=== PATIENT | female | born 1965 | race Caucasian/White ===

== ENCOUNTER 2017-01-04 15:08 | Emergency (ER) | payer BC, OTHER ==
[~2017-01-04] VITALS: Ht 165.1 cm; Wt 78.5 kg
[~2017-01-04 15:08] MED LIST: INSU3INS6 SUBCUT; OLME1TAB PO; TRAM50TA2 PO
--- NOTE | 2017-01-04 15:30 | NUR ---
DR CONCEPCION AT THE BEDSIDE FOR EVAL AND EXAM.
[2017-01-04] MEDS: HYDROCODONE/APAP 5-325MG TABLET PO ONE (15:40)
[2017-01-04] MEDS ORDERED: HYDROCODONE/APAP 5-325MG TABLET ONE (15:47)
[2017-01-04 15:50] LABS: BASOPHILS # (AUTO) 0.1 K/uL (0.0-0.2); BASOPHILS % (AUTO) 0.7 % (0.0-2.0); EOSINOPHILS # (AUTO) 0.3 K/uL (0.0-0.7); EOSINOPHILS % (AUTO) 3.2 % (0.0-7.0); HEMATOCRIT 45.3 % (37.0-47.0); HEMOGLOBIN 15.5 g/dL (12.0-16.0); LYMPHOCYTES # (AUTO) 3.8 K/uL (0.8-4.8); LYMPHOCYTES % (AUTO) 34.8 % (20.5-51.5); MEAN CORPUSCULAR HEMOGLOBIN 30.3 uug (27.0-31.0); MEAN CORPUSCULAR HGB CONC 34 g/dL (32.0-37.0); MEAN CORPUSCULAR VOLUME 88.4 fL (81.0-99.0); MONOCYTES # (AUTO) 0.7 K/uL (0.1-1.30); MONOCYTES % (AUTO) 6.3 % (0.0-11.0); NEUTROPHILS # (AUTO) 5.9 K/uL (1.8-8.9); PLATELET COUNT (AUTO) 249 K/uL (150-450); RED BLOOD CELL COUNT(AUTO) 5.12 MIL/uL (4.20-5.40); RED CELL DISTRIBUTION WIDTH 12.5 % (11.5-14.5); WHITE BLOOD COUNT (AUTO) 10.8 K/uL (4.0-11.2)
[2017-01-04 15:52] LABS: CALCIUM 9.1 mg/dL (8.5-10.1); CREATININE 0.8 mg/dL (0.6-1.3); POTASSIUM 4.6 mmol/L (3.5-5.1)
--- NOTE | 2017-01-04 16:15 | NUR ---
PT BACK FROM CT, RESTING IN BED.
[2017-01-04] MEDS: ONDANSETRON HCL 4 MG TABLET PO ONE (16:24)
[2017-01-04] MEDS ORDERED: ONDANSETRON ODT 4 MG TAB.RAPDIS ONE (16:30)
[2017-01-04 16:37] VITALS: BP 149/81
--- NOTE | 2017-01-04 16:52 | NUR ---
Patient discharged to home in stable conditon. Written and verbal after care instructions given. Patient verbalizes understanding of instructions. PT LEFT ER W/ STEADY GAIT ACCOMPAINED BY FAMILY.
== END 2017-01-04 16:53 | disposition home or self-care (01) ==
LOC: ER 15:12
DX: S01.21XA Laceration without foreign body of nose, initial encounter (principal); E11.9 Type 2 diabetes mellitus without complications; Z79.4 Long term (current) use of insulin; Z88.6 Allergy status to analgesic agent; W01.0XXA Fall on same level from slipping, tripping and stumbling without subsequent striking against object, initial encounter; Y93.89 Activity, other specified; Y99.8 Other external cause status; Y92.89 Other specified places as the place of occurrence of the external cause
CPT/HCPCS: 12013; 36415; 70450; 71010; 80048; 84484; 85025; 85730; 93005; 99285; A4217; A4663; Q0162; 70030-TC

== ENCOUNTER 2017-07-12 16:32 | Emergency (ER) | payer BC, OTHER ==
[~2017-07-12] VITALS: Ht 165.1 cm; Wt 78.9 kg
[~2017-07-12 16:32] MED LIST changes: -OLME1TAB PO; +OLME1TAB16 PO
[2017-07-12] MEDS ORDERED: INSU100V28 (16:54)
--- NOTE | 2017-07-12 17:18 | NUR ---
PATIENT WAS SEEN BY MD FOR C/O FOOT INJURY. XRAYS DONE. POST OP SHOE PLACED. CRUTCHES WITH INSTRUCTIONS GIVEN AND DEMONSTRATED. DC, RX AND FOLLOW UP INSTRUCTIONS GIVEN AND EXPLAINED TO PATIENT WHO STATES SHE UNDERTSTANDS ALL INSTRUCTIONS.
--- NOTE | 2017-07-12 17:46 | NUR ---
WAITING FOR RIDE TO ARRIVE
== END 2017-07-12 18:46 | disposition home or self-care (01) ==
LOC: ER 16:33
DX: S93.602A Unspecified sprain of left foot, initial encounter (principal); I10 Essential (primary) hypertension; E11.9 Type 2 diabetes mellitus without complications; Z79.4 Long term (current) use of insulin; X50.9XXA Other and unspecified overexertion or strenuous movements or postures, initial encounter; Y93.89 Activity, other specified; Y92.9 Unspecified place or not applicable; Y99.9 Unspecified external cause status
CPT/HCPCS: 73630; 96372; 99284; A4663; J1885

== ENCOUNTER 2018-01-15 08:02 | Inpatient (IN) | payer BC, OTHER ==
[~2018-01-15] VITALS: Ht 165.1 cm; Wt 82.6 kg
[2018-01-15] VITALS (8 sets, daily range): BP systolic 118–154; BP diastolic 32–88
[~2018-01-15 08:02] MED LIST changes: +INSU100V28 SQ
[2018-01-15] MEDS ORDERED: ASPIRIN 325 MG TABLET ONE (08:18)
[2018-01-15] MEDS ORDERED: ASPIRIN 325 MG TABLET PO ONE (08:30)
[2018-01-15] MEDS ORDERED: NITROGLYCERIN 0.4 MG/TAB BOTTLE SL ONE ×2 (08:30→08:31)
[2018-01-15] MEDS ORDERED: IV NORMAL SALINE 500 ML BAG IV ONE (08:30)
[2018-01-15 09:11] LABS: BASOPHILS % (AUTO) 0.5 % (0.0-2.0); EOSINOPHILS # (AUTO) 0.2 K/uL (0.0-0.7); EOSINOPHILS % (AUTO) 1.9 % (0.0-7.0); HEMATOCRIT 47.8 % (31.2-41.9); HEMOGLOBIN 16.2 g/dL (10.9-14.3); LYMPHOCYTES # (AUTO) 4.2 K/uL (20.0-40.0); LYMPHOCYTES % (AUTO) 45.7 % (20.5-51.5); MEAN CORPUSCULAR HEMOGLOBIN 30.7 uug (24.7-32.8); MEAN CORPUSCULAR HGB CONC 34 g/dL (32.3-35.6); MEAN CORPUSCULAR VOLUME 90.3 fL (75.5-95.3); MONOCYTES # (AUTO) 0.6 K/uL (2.0-10.0); MONOCYTES % (AUTO) 6.2 % (0.0-11.0); NEUTROPHILS # (AUTO) 4.2 K/uL (1.8-8.9); NEUTROPHILS % (AUTO) 45.7 % (38.5-71.5); PLATELET COUNT (AUTO) 227 K/uL (179-408); RED BLOOD CELL COUNT(AUTO) 5.29 MIL/uL (3.63-4.92); WHITE BLOOD COUNT (AUTO) 9.2 K/uL (3.8-11.8)
[2018-01-15] MEDS ORDERED: ACETAMINOPHEN 325 MG TABLET PO ONE (09:15)
[2018-01-15] MEDS ORDERED: ACETAMINOPHEN ES 500 MG TABLET ONE (09:16)
[2018-01-15 09:17] LABS: CREATININE 0.8 mg/dL (0.6-1.3); POTASSIUM 3.3 mmol/L (3.5-5.1)
[2018-01-15 09:29] LABS: BILIRUBIN,DIRECT 0.1 mg/dL (0.0-0.2); BILIRUBIN,TOTAL 0.4 mg/dL (0.2-1.0); TOTAL PROTEIN, SERUM 8.5 g/dL (6.4-8.2)
[2018-01-15] MEDS ORDERED: INSULIN REGULAR, HUMAN 300 UNIT/3 ML VIAL ONE (09:30)
[2018-01-15] MEDS: INSULIN REGULAR, HUMAN 1,000 UNITS/10 ML VIAL IV ONE (09:32)
[2018-01-15] MEDS ORDERED: ASPI81TA44 PO (09:32)
[2018-01-15] MEDS ORDERED: ONDANSETRON 4 MG/2 ML VIAL IV PRN (12:15)
[2018-01-15] MEDS ORDERED: HYDROCODONE/APAP 5-325MG TABLET PO PRN (12:15)
[2018-01-15] MEDS ORDERED: ZOLPIDEM 5 MG TABLET PO PRN (12:15)
[2018-01-15] MEDS ORDERED: MAGNESIUM HYDROXIDE 30 ML LIQUID UDC PO PRN (12:15)
[2018-01-15] MEDS ORDERED: Z GUARD REMEDY PASTE 57 GM TUBE TOP PRN (12:15)
[2018-01-15] MEDS ORDERED: ACETAMINOPHEN 325 MG TABLET PO PRN (12:15)
[2018-01-15] MEDS ORDERED: DEXTROSE 50% 50 ML DISP.SYRIN IV PRN (13:00)
[2018-01-15] MEDS ORDERED: TRAMADOL HCL 50 MG TABLET PO PRN (13:00)
[2018-01-15] MEDS ORDERED: NITROGLYCERIN 0.4 MG/TAB BOTTLE SL PRN (13:00)
[2018-01-15] MEDS ORDERED: INSULIN REGULAR, HUMAN 300 UNITS/3 ML VIAL SQ PRN (13:00)
[2018-01-15] MEDS ORDERED: LORAZEPAM 0.5 MG TABLET PO PRN (13:15)
[2018-01-15] MEDS ORDERED: MORPHINE SULFATE 4 MG/1 ML DISP.SYRIN IV PRN (13:15)
[2018-01-15] MEDS ORDERED: NORMAL SALINE FLUSH 10 ML DISP.SYRIN ONE (14:53)
[2018-01-15] MEDS ORDERED: IV NORMAL SALINE 100 ML ONE (14:53)
[2018-01-15] MEDS ORDERED: IOHEXOL 350 100 ML INFUS..BTL ONE (14:53)
[2018-01-15] MEDS ORDERED: POTASSIUM CHLORIDE 20 MEQ TAB.PRT.SR PO ONE (15:00)
[2018-01-15] MEDS: PANTOPRAZOLE SODIUM 40 MG VIAL IV SCH (15:06)
[2018-01-15] MEDS: IV NS 1000 ML 1,000 ML IV PRN (15:58)
[2018-01-15] MEDS ORDERED: LISI2.5T2 PO (16:45)
[2018-01-15] MEDS: BLOOD SUGAR DIAGNOSTIC 1 EACH STRIP VI SCH ×2 (17:00→20:42)
[2018-01-15] MEDS: INSULIN REGULAR, HUMAN 300 UNIT/3 ML VIAL SQ PRN ×2 (18:27→20:44)
[2018-01-15] MEDS: INSULIN GLARGINE,HUM 300 UNITS/3 ML CARTRIDGE SQ SCH (20:45)
[2018-01-15] MEDS: METOPROLOL TARTRATE 25 MG TABLET PO SCH (20:56)
[2018-01-15] MEDS: ENOXAPARIN SODIUM 40 MG/0.4 ML DISP.SYRIN SQ SCH (20:58)
[2018-01-16] VITALS: BP 118/58
[2018-01-16 04:00] VITALS: BP 124/64
[2018-01-16] MEDS: BLOOD SUGAR DIAGNOSTIC 1 EACH STRIP VI SCH ×4 (06:30→21:24)
[2018-01-16] MEDS: IV NS 1000 ML 1,000 ML IV PRN ×2 (06:30→23:54)
[2018-01-16 06:38] LABS: BASOPHILS % (AUTO) 0.6 % (0.0-2.0); EOSINOPHILS # (AUTO) 0.2 K/uL (0.0-0.7); EOSINOPHILS % (AUTO) 2.8 % (0.0-7.0); HEMATOCRIT 44.5 % (31.2-41.9); HEMOGLOBIN 14.8 g/dL (10.9-14.3); LYMPHOCYTES # (AUTO) 3.3 K/uL (20.0-40.0); LYMPHOCYTES % (AUTO) 45.3 % (20.5-51.5); MEAN CORPUSCULAR HEMOGLOBIN 30.3 uug (24.7-32.8); MEAN CORPUSCULAR HGB CONC 33 g/dL (32.3-35.6); MEAN CORPUSCULAR VOLUME 91.1 fL (75.5-95.3); MONOCYTES # (AUTO) 0.5 K/uL (2.0-10.0); MONOCYTES % (AUTO) 6.9 % (0.0-11.0); NEUTROPHILS # (AUTO) 3.2 K/uL (1.8-8.9); NEUTROPHILS % (AUTO) 44.4 % (38.5-71.5); PLATELET COUNT (AUTO) 182 K/uL (179-408); RED BLOOD CELL COUNT(AUTO) 4.88 MIL/uL (3.63-4.92); WHITE BLOOD COUNT (AUTO) 7.3 K/uL (3.8-11.8)
[2018-01-16 06:49] LABS: CREATININE 0.7 mg/dL (0.6-1.3); PHOSPHOROUS 3.3 mg/dL (2.5-4.9); POTASSIUM 4.6 mmol/L (3.5-5.1)
[2018-01-16 07:10] LABS: THYROID STIMULATING HORMONE 0.744 mIU/mL (0.358-3.740)
[2018-01-16 08:35] LABS: *BILIRUBIN,URIN NEGATIVE (NEGATIVE); *BLOOD, URINE NEGATIVE (NEGATIVE); *CLARITY,URINE CLEAR (CLEAR); *COLOR,URINE YELLOW (YELLOW); *KETONES,URINE NEGATIVE (NEGATIVE); *PROTEIN,URINE NEGATIVE (NEGATIVE); *UROBILINOGEN,URINE 0.2 E.U./dl (NORMAL); LEUKOCYTE ESTERASE ,URINE NEGATIVE (NEGATIVE); NITRITE, URINE NEGATIVE (NEGATIVE); UGLUCOSE TRACE (NEGATIVE)
[2018-01-16 08:41] LABS: BACTERIA,URINE FEW /HPF (NONE SEEN); RBC,URINE 0-3 /HPF (0-3); SQUAMOUS EPITHELIAL CELL,UR MODERATE /HPF (NONE SEEN)
[2018-01-16] MEDS ORDERED: ASPIRIN EC 81 MG TABLET.DR PO SCH (09:00)
[2018-01-16] MEDS ORDERED: ASPIRIN 81 MG TAB.CHEW GT SCH (09:00)
[2018-01-16] MEDS: INSULIN GLARGINE,HUM 300 UNITS/3 ML CARTRIDGE SQ SCH ×2 (09:00→21:17)
[2018-01-16] MEDS ORDERED: ASPIRIN 81 MG TAB.CHEW PO SCH (09:00)
[2018-01-16] MEDS: LISINOPRIL 10 MG TABLET PO SCH (09:00)
[2018-01-16] MEDS: METOPROLOL TARTRATE 25 MG TABLET PO SCH ×2 (09:00→21:07)
[2018-01-16] MEDS: PANTOPRAZOLE SODIUM 40 MG VIAL IV SCH (09:40)
[2018-01-16 11:15] VITALS: BP 115/45
[2018-01-16] MEDS ORDERED: REGADENOSON 0.4 MG/5 ML PREFILLED SYR IV ONE (16:25)
[2018-01-16] MEDS: INSULIN REGULAR, HUMAN 300 UNIT/3 ML VIAL SQ PRN (16:48)
[2018-01-16 20:01] VITALS: BP 115/57
[2018-01-16] MEDS ORDERED: ATORVASTATIN 20 MG TABLET PO SCH (21:00)
[2018-01-16] MEDS ORDERED: ATORVASTATIN 40 MG TABLET PO SCH (21:00)
[2018-01-16] MEDS: ENOXAPARIN SODIUM 40 MG/0.4 ML DISP.SYRIN SQ SCH (21:24)
[2018-01-17 05:47] VITALS: BP 131/69
[2018-01-17] MEDS: BLOOD SUGAR DIAGNOSTIC 1 EACH STRIP VI SCH ×3 (06:02→16:06)
[2018-01-17] MEDS: INSULIN REGULAR, HUMAN 300 UNIT/3 ML VIAL SQ PRN ×3 (07:47→16:07)
[2018-01-17] MEDS: PANTOPRAZOLE SODIUM 40 MG VIAL IV SCH (08:14)
[2018-01-17] MEDS: LISINOPRIL 10 MG TABLET PO SCH (08:15)
[2018-01-17] MEDS ORDERED: ASPIRIN 81 MG TAB.CHEW PO SCH (09:00)
[2018-01-17] MEDS: INSULIN GLARGINE,HUM 300 UNITS/3 ML CARTRIDGE SQ SCH (09:13)
[2018-01-17 11:49] VITALS: BP 141/58
[2018-01-17] MEDS ORDERED: ATOR10TA PO (15:41)
[2018-01-17] MEDS ORDERED: LISI10TA5 PO (15:41)
[2018-01-17 15:49] VITALS: BP 113/68
[2018-01-18] MEDS ORDERED: PANTOPRAZOLE SODIUM 40 MG TABLET.DR PO SCH (07:00)
== END 2018-01-17 16:40 | disposition home or self-care (01) | DRG 206 ==
LOC: ER 08:02 → TELE 10:48 → CCUOV 11:14 → CCU 11:16 → TELE 19:11 → MED 01-16 22:00
PROVIDERS: ADMIT Hospitalist; ATTEND Hospitalist
DX: M94.0 Chondrocostal junction syndrome [Tietze] (principal); E11.42 Type 2 diabetes mellitus with diabetic polyneuropathy; K76.0 Fatty (change of) liver, not elsewhere classified; G43.109 Migraine with aura, not intractable, without status migrainosus; E11.65 Type 2 diabetes mellitus with hyperglycemia; Z86.19 Personal history of other infectious and parasitic diseases; E66.9 Obesity, unspecified; Z68.30 Body mass index [BMI] 30.0-30.9, adult; E87.6 Hypokalemia; J32.8 Other chronic sinusitis; Z82.49 Family history of ischemic heart disease and other diseases of the circulatory system; Z82.3 Family history of stroke; Z83.3 Family history of diabetes mellitus; Z91.14 Patient's other noncompliance with medication regimen; Z90.710 Acquired absence of both cervix and uterus; Z90.49 Acquired absence of other specified parts of digestive tract; Z79.4 Long term (current) use of insulin; J34.2 Deviated nasal septum; I10 Essential (primary) hypertension; Z86.73 Personal history of transient ischemic attack (TIA), and cerebral infarction without residual deficits
CPT/HCPCS: 36415; 70030-TC; 70450; 70551; 71045; 71275; 78452; 83735; 84100; 84443; 85025; 85730; 87086; 93005; 93307; A4663; A9150; A9502; C9113; J1650; J1815; J2405; J2785; J3490; J7030; J7050; Q9967

== ENCOUNTER 2018-04-06 22:47 | Emergency (ER) | payer BC, OTHER ==
[~2018-04-06] VITALS: Ht 165.1 cm; Wt 78.5 kg
[~2018-04-06 22:47] MED LIST changes: +ASPI81TA44 PO; +ATOR10TA PO; -INSU100V28 SQ; +LISI10TA5 PO; -OLME1TAB16 PO; -TRAM50TA2 PO
[2018-04-06] MEDS ORDERED: BENZONATATE 100 MG CAPSULE PO ONE (23:30)
[2018-04-06] MEDS ORDERED: ALBUTEROL SULFATE 2.5 MG/3 ML NEBU NEB ONE (23:30)
[2018-04-06] MEDS ORDERED: ALBUTEROL SULFATE 2.5 MG/3 ML NEBU ONE (23:34)
[2018-04-06] MEDS ORDERED: BENZONATATE 100 MG CAPSULE ONE (23:36)
--- NOTE | 2018-04-06 23:50 | NUR ---
Patient in bed, no acute distress noted. Breathing tx well tolerated.
--- NOTE | 2018-04-07 00:22 | NUR ---
Patient discharged to home in stable conditon. Written and verbal after care instructions given. Patient verbalizes understanding of instructions. Ambulated from ER with stable chris. All belongings with patient.
[2018-04-07 00:32] VITALS: BP 141/81
== END 2018-04-07 00:33 | disposition home or self-care (01) ==
LOC: ER 22:48
DX: J20.8 Acute bronchitis due to other specified organisms (principal); B97.89 Other viral agents as the cause of diseases classified elsewhere; I10 Essential (primary) hypertension; E11.9 Type 2 diabetes mellitus without complications; Z88.5 Allergy status to narcotic agent; Z91.041 Radiographic dye allergy status; Z90.710 Acquired absence of both cervix and uterus; Z90.49 Acquired absence of other specified parts of digestive tract; Z79.82 Long term (current) use of aspirin; Z79.4 Long term (current) use of insulin; Z79.899 Other long term (current) drug therapy
CPT/HCPCS: 71045; 94640; 99283; A4663

== ENCOUNTER 2018-12-09 09:04 | Emergency (ER) | payer BC, OTHER ==
[~2018-12-09] VITALS: Ht 172.7 cm; Wt 80.7 kg
--- NOTE | 2018-12-09 10:17 | NUR ---
Patient discharged to home in stable conditon & brisk steady gait. Written and verbal after care instructions given to patient. Patient verbalizes understanding of instructions.
== END 2018-12-09 10:30 | disposition home or self-care (01) ==
LOC: ER 09:04
DX: J11.1 Influenza due to unidentified influenza virus with other respiratory manifestations (principal); I10 Essential (primary) hypertension; E11.9 Type 2 diabetes mellitus without complications; Z88.5 Allergy status to narcotic agent; Z91.041 Radiographic dye allergy status; Z79.82 Long term (current) use of aspirin; Z79.4 Long term (current) use of insulin; Z79.899 Other long term (current) drug therapy
CPT/HCPCS: 71045; A4663

== ENCOUNTER 2019-04-02 13:46 | Emergency (ER) | payer BC, OTHER ==
[~2019-04-02] VITALS: Ht 165.1 cm; Wt 74.8 kg
[2019-04-02] MEDS ORDERED: IV NORMAL SALINE 1000 ML BAG IV ONE ×2 (14:15)
[2019-04-02] MEDS ORDERED: ONDANSETRON 4 MG/2 ML VIAL IV ONE (14:15)
[2019-04-02] MEDS ORDERED: KETOROLAC TROMETHAMINE 30 MG INJ IVP ONE (14:15)
--- NOTE | 2019-04-02 14:20 | NUR ---
in room 2a, seen by Dr Harrison. orders received. 12 lead ekg done. Attempted IV start via right arm and left arm. IV inserted via left wrist #22. blood drawn for labs. to Radiology for head CT Addendum: 04/02/[address] of pelvis/abdomen done instead of head ct
[2019-04-02] MEDS ORDERED: ONDANSETRON 4 MG/2 ML VIAL ONE (14:24)
[2019-04-02] MEDS ORDERED: KETOROLAC TROMETHAMINE 30 MG INJ ONE (14:25)
[2019-04-02 14:28] LABS: BASOPHILS % (AUTO) 0.4 % (0.0-2.0); EOSINOPHILS # (AUTO) 0.1 K/uL (0.0-0.7); HEMATOCRIT 48.1 % (31.2-41.9); HEMOGLOBIN 15.5 g/dL (10.9-14.3); LYMPHOCYTES # (AUTO) 3.3 K/uL (20.0-40.0); LYMPHOCYTES % (AUTO) 39.6 % (20.5-51.5); MEAN CORPUSCULAR HEMOGLOBIN 29.2 uug (24.7-32.8); MEAN CORPUSCULAR HGB CONC 32 g/dL (32.3-35.6); MEAN CORPUSCULAR VOLUME 90.5 fL (75.5-95.3); MONOCYTES # (AUTO) 0.5 K/uL (2.0-10.0); MONOCYTES % (AUTO) 5.5 % (0.0-11.0); NEUTROPHILS # (AUTO) 4.5 K/uL (1.8-8.9); NEUTROPHILS % (AUTO) 53.5 % (38.5-71.5); PLATELET COUNT (AUTO) 202 K/uL (179-408); RED BLOOD CELL COUNT(AUTO) 5.31 MIL/uL (3.63-4.92); WHITE BLOOD COUNT (AUTO) 8.4 K/uL (3.8-11.8)
[2019-04-02 14:34] LABS: CREATININE 0.7 mg/dL (0.6-1.3); POTASSIUM 4.7 mmol/L (3.5-5.1)
[2019-04-02 14:45] LABS: BILIRUBIN,DIRECT 0.1 mg/dL (0.0-0.2); BILIRUBIN,TOTAL 0.4 mg/dL (0.2-1.0); TOTAL PROTEIN, SERUM 8.1 g/dL (6.4-8.2)
[2019-04-02] MEDS ORDERED: LOSA50TA39 PO (14:47)
--- NOTE | 2019-04-02 14:58 | NUR ---
back from Radiology. IV NS 1 liter started wide open. medicated with zofran followed with toradol IV
[2019-04-02 17:04] VITALS: BP 138/60
== END 2019-04-02 17:08 | disposition home or self-care (01) ==
LOC: ER 13:46 → MERGE 13:46 → ER 17:08
DX: R10.31 Right lower quadrant pain (principal); E11.65 Type 2 diabetes mellitus with hyperglycemia; R11.2 Nausea with vomiting, unspecified; I10 Essential (primary) hypertension; Z90.49 Acquired absence of other specified parts of digestive tract; Z88.5 Allergy status to narcotic agent; Z88.8 Allergy status to other drugs, medicaments and biological substances; Z91.041 Radiographic dye allergy status; Z79.82 Long term (current) use of aspirin; Z79.4 Long term (current) use of insulin; Z79.899 Other long term (current) drug therapy
CPT/HCPCS: 36415; 71045; 74176; 80048; 80076; 83036; 83690; 84484; 85025; 85730; 93005; 96361; 96374; 96375; 99284; J1885; J2405; 70030-TC; A4663; J7030

== ENCOUNTER 2019-11-20 09:58 | Inpatient (IN) | payer BC, OTHER ==
[~2019-11-20] VITALS: Ht 165.1 cm; Wt 80.0 kg
[~2019-11-20 09:58] MED LIST changes: +LOSA50TA39 PO
[2019-11-20] MEDS ORDERED: INSU3INS6 SQ (10:30)
[2019-11-20] MEDS ORDERED: INSU100V28 SQ (10:30)
[2019-11-20 10:56] LABS: BASOPHILS # (AUTO) 0.1 K/uL (0.0-8.0); BASOPHILS % (AUTO) 0.7 % (0.0-2.0); EOSINOPHILS # (AUTO) 0.2 K/uL (0.0-0.7); EOSINOPHILS % (AUTO) 2.8 % (0.0-7.0); HEMATOCRIT 44.2 % (31.2-41.9); HEMOGLOBIN 14.9 g/dL (10.9-14.3); LYMPHOCYTES # (AUTO) 3.1 K/uL (20.0-40.0); LYMPHOCYTES % (AUTO) 34.7 % (20.5-51.5); MEAN CORPUSCULAR HEMOGLOBIN 30.6 uug (24.7-32.8); MEAN CORPUSCULAR HGB CONC 34 g/dL (32.3-35.6); MONOCYTES # (AUTO) 0.5 K/uL (2.0-10.0); MONOCYTES % (AUTO) 5.4 % (0.0-11.0); NEUTROPHILS % (AUTO) 56.4 % (38.5-71.5); PLATELET COUNT (AUTO) 249 K/uL (179-408); RED BLOOD CELL COUNT(AUTO) 4.86 MIL/uL (3.63-4.92); WHITE BLOOD COUNT (AUTO) 8.8 K/uL (3.8-11.8)
[2019-11-20 11:05] LABS: BILIRUBIN,DIRECT 0.1 mg/dL (0.0-0.2); BILIRUBIN,TOTAL 0.3 mg/dL (0.2-1.0); CREATININE 0.8 mg/dL (0.6-1.3); POTASSIUM 3.8 mmol/L (3.5-5.1); TOTAL PROTEIN, SERUM 7.4 g/dL (6.4-8.2)
[2019-11-20 11:44] LABS: MAGNESIUM 1.8 mg/dL (1.8-2.4); THYROID STIMULATING HORMONE 0.604 mIU/mL (0.358-3.740)
[2019-11-20] MEDS ORDERED: ACETAMINOPHEN ES 500 MG TABLET PO ONE (11:45)
[2019-11-20] MEDS ORDERED: ASPIRIN 325 MG TABLET PO ONE (11:45)
--- NOTE | 2019-11-20 11:48 | NUR ---
Pt resting with NAD noted. [facility] called for admission per request.
[2019-11-20] MEDS ORDERED: ACETAMINOPHEN ES 500 MG TABLET ONE (11:51)
[2019-11-20] MEDS ORDERED: ASPIRIN 325 MG TABLET ONE (11:51)
--- NOTE | 2019-11-20 12:30 | NUR ---
spoke with via telephone, pt to be admitted to tele. Attempted to give report to tele floor, assigned nurse to call back.
[2019-11-20] MEDS ORDERED: CYCL5TAB PO (13:12)
[2019-11-20] MEDS ORDERED: CHOL500062 PO (13:12)
[2019-11-20] MEDS ORDERED: CYAN-10 IM (13:12)
[2019-11-20] MEDS ORDERED: HYDROCODONE/APAP 5-325MG TABLET PO PRN (13:30)
[2019-11-20] MEDS ORDERED: MAGNESIUM HYDROXIDE 30 ML LIQUID UDC PO PRN (13:30)
[2019-11-20] MEDS ORDERED: Z GUARD REMEDY PASTE 57 GM TUBE TOP PRN (13:30)
[2019-11-20] MEDS ORDERED: ONDANSETRON 4 MG/2 ML VIAL IV PRN (13:30)
--- NOTE | 2019-11-20 13:35 | NUR ---
[facility] report given to [facility] via telephone.
--- NOTE | 2019-11-20 13:50 | NUR ---
PT TRANS TO TELE, NAD NOTED.
[2019-11-20 14:30] VITALS: BP 151/82
--- NOTE | 2019-11-20 16:02 | NUR ---
alert, oriented, and very appropriate. " here because my sugar so high, I was scared". Works at [employer], no complaint of dizziness , no weakness at this time. Sons at bedside with her. Made aware her sugar will be checked again at 1800 today, and we'll go from there.
[2019-11-20 16:49] VITALS: BP 145/85
[2019-11-20] MEDS: INSULIN REGULAR, HUMAN 300 UNIT/3 ML VIAL SQ SCH (17:07)
--- NOTE | 2019-11-20 17:19 | NUR ---
bs at 1700, down to 173, 10units reg insulin given. No further complaint.
[2019-11-20 20:39] VITALS: BP 118/64
[2019-11-20] MEDS: INSULIN GLARGINE,HUM 300 UNITS/3 ML CARTRIDGE SQ SCH (21:12)
[2019-11-20] MEDS: ACETAMINOPHEN 325 MG TABLET PO PRN (21:54)
[2019-11-21] VITALS: BP 115/62
[2019-11-21 05:52] VITALS: BP 122/65
[2019-11-21] MEDS: ACETAMINOPHEN 325 MG TABLET PO PRN ×2 (06:14→20:48)
[2019-11-21 06:21] LABS: BASOPHILS % (AUTO) 0.5 % (0.0-2.0); EOSINOPHILS # (AUTO) 0.2 K/uL (0.0-0.7); EOSINOPHILS % (AUTO) 3.9 % (0.0-7.0); HEMATOCRIT 43.8 % (31.2-41.9); HEMOGLOBIN 14.8 g/dL (10.9-14.3); LYMPHOCYTES # (AUTO) 2.2 K/uL (20.0-40.0); LYMPHOCYTES % (AUTO) 35.3 % (20.5-51.5); MEAN CORPUSCULAR HEMOGLOBIN 30.8 uug (24.7-32.8); MEAN CORPUSCULAR HGB CONC 34 g/dL (32.3-35.6); MEAN CORPUSCULAR VOLUME 91.3 fL (75.5-95.3); MONOCYTES # (AUTO) 0.5 K/uL (2.0-10.0); MONOCYTES % (AUTO) 7.5 % (0.0-11.0); NEUTROPHILS # (AUTO) 3.4 K/uL (1.8-8.9); NEUTROPHILS % (AUTO) 52.8 % (38.5-71.5); PLATELET COUNT (AUTO) 246 K/uL (179-408); WHITE BLOOD COUNT (AUTO) 6.4 K/uL (3.8-11.8)
[2019-11-21 06:35] LABS: CREATININE 0.7 mg/dL (0.6-1.3); MAGNESIUM 1.8 mg/dL (1.8-2.4); PHOSPHOROUS 3.5 mg/dL (2.5-4.9); POTASSIUM 4.3 mmol/L (3.5-5.1)
--- NOTE | 2019-11-21 06:42 | NUR ---
patient received in bed with daughter at bedside. no signs of acute distress and v/s stable throughout shift. safety and comfort measures provided. Tylenol administered for pain in the neck. denies chest pain throughout shift. NSR on tele monitor. will continue plan of care and endorse accordingly.
--- NOTE | 2019-11-21 08:00 | NUR ---
received pt. resting in bed alert oriented x4. Pt. denies pain discomfort. Pt. denies SOB/ difficulty breathing. Safety measures in place. Call light within reach. Will continue to monitor pt.
[2019-11-21] MEDS: CHOLECALCIFEROL 1,000 UNIT TABLET PO SCH (08:45)
[2019-11-21] MEDS: CYCLOBENZAPRINE HCL 10 MG TABLET PO SCH (08:45)
[2019-11-21] MEDS: ASPIRIN EC 81 MG TABLET.DR PO SCH (08:45)
[2019-11-21] MEDS: LOSARTAN POTASSIUM 50 MG TABLET PO SCH (08:45)
[2019-11-21] MEDS: INSULIN REGULAR, HUMAN 300 UNIT/3 ML VIAL SQ SCH ×3 (08:47→17:52)
[2019-11-21] MEDS: INSULIN GLARGINE,HUM 300 UNITS/3 ML CARTRIDGE SQ SCH ×2 (08:49→20:43)
[2019-11-21] MEDS ORDERED: DEXTROSE 50% 50 ML DISP.SYRIN IV PRN (10:45)
[2019-11-21 11:51] VITALS: BP 109/73
--- NOTE | 2019-11-21 12:52 | NUR ---
Spoke to hospitalist Dr. Hermosillo and pharmacist Petty regarding regular insulin scheduled 10 units before meals and for mild sliding scale. Instructed by pharmacist to check blood sugar before meals and give 10 units of insulin scheduled then to recheck blood sugar after meals and to call pharmacist before providing sliding scale insulin.
--- NOTE | 2019-11-21 14:49 | NUR ---
blood sugar is elevated on 3 different blood sugar checks. 1st check 358 2nd check 286 and third check 305. Ordered random glucose to get accurate check of blood sugar. Waiting for lab results.
[2019-11-21] MEDS: BLOOD SUGAR DIAGNOSTIC 1 EACH STRIP VI SCH ×4 (14:56→20:41)
[2019-11-21] MEDS: INSULIN REGULAR, HUMAN 300 UNIT/3 ML VIAL SQ PRN ×2 (15:08→18:23)
[2019-11-21 20:27] VITALS: BP 121/62
[2019-11-22 06:01] VITALS: BP 115/73
--- NOTE | 2019-11-22 06:21 | NUR ---
Patient slept well. No complaints of chest pain. Heplock on LFA intact and patent w/ saline flush. Patient had shower this AM. All needs attended. Will endorse accordingly
[2019-11-22] MEDS: BLOOD SUGAR DIAGNOSTIC 1 EACH STRIP VI SCH ×2 (06:31→13:46)
[2019-11-22 06:39] LABS: BASOPHILS # (AUTO) 0.1 K/uL (0.0-8.0); BASOPHILS % (AUTO) 0.7 % (0.0-2.0); EOSINOPHILS # (AUTO) 0.2 K/uL (0.0-0.7); EOSINOPHILS % (AUTO) 2.4 % (0.0-7.0); HEMATOCRIT 45.5 % (31.2-41.9); HEMOGLOBIN 15.2 g/dL (10.9-14.3); LYMPHOCYTES # (AUTO) 2.9 K/uL (20.0-40.0); LYMPHOCYTES % (AUTO) 35.6 % (20.5-51.5); MEAN CORPUSCULAR HEMOGLOBIN 30.5 uug (24.7-32.8); MEAN CORPUSCULAR HGB CONC 33 g/dL (32.3-35.6); MEAN CORPUSCULAR VOLUME 91.3 fL (75.5-95.3); MONOCYTES # (AUTO) 0.7 K/uL (2.0-10.0); MONOCYTES % (AUTO) 8.6 % (0.0-11.0); NEUTROPHILS # (AUTO) 4.3 K/uL (1.8-8.9); NEUTROPHILS % (AUTO) 52.7 % (38.5-71.5); PLATELET COUNT (AUTO) 254 K/uL (179-408); RED BLOOD CELL COUNT(AUTO) 4.98 MIL/uL (3.63-4.92); WHITE BLOOD COUNT (AUTO) 8.1 K/uL (3.8-11.8)
[2019-11-22 06:42] LABS: CREATININE 0.7 mg/dL (0.6-1.3); POTASSIUM 3.9 mmol/L (3.5-5.1)
--- NOTE | 2019-11-22 08:15 | NUR ---
Received pt. resting in bed alert oriented x4. Pt. denies pain discomfort. Pt. denies SOB/ difficulty breathing. Pt. has IV in L forearm 20 gauge intact patent saline lock. Safety measures in place. Call light within reach. Will continue to monitor pt.
[2019-11-22] MEDS: LOSARTAN POTASSIUM 50 MG TABLET PO SCH (08:58)
[2019-11-22] MEDS: CHOLECALCIFEROL 1,000 UNIT TABLET PO SCH (08:58)
[2019-11-22] MEDS: ASPIRIN EC 81 MG TABLET.DR PO SCH (08:58)
[2019-11-22] MEDS: CYCLOBENZAPRINE HCL 10 MG TABLET PO SCH (08:59)
[2019-11-22] MEDS: INSULIN GLARGINE,HUM 300 UNITS/3 ML CARTRIDGE SQ SCH (09:08)
[2019-11-22] MEDS: INSULIN REGULAR, HUMAN 300 UNIT/3 ML VIAL SQ SCH ×2 (09:09→13:29)
[2019-11-22] MEDS ORDERED: INSU100V28 SQ (10:18)
[2019-11-22] MEDS ORDERED: Insulin Glargine,Hum SQ (10:18)
[2019-11-22 12:00] VITALS: BP 131/76
[2019-11-22] MEDS: INSULIN REGULAR, HUMAN 300 UNIT/3 ML VIAL SQ PRN (13:43)
--- NOTE | 2019-11-22 14:37 | NUR ---
Pt. discharged home with self care. All discharge paperwork explained by nurse and signed by pt. Pt is aware of discharge plans. IV removed. id band removed. All belongings back to pt. Excused from work until 11/[address] Hermosillo. Consent to release information signed by pt. and in chart. Pt. walked down by nurse and left via private car. 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 pt. in stable condition
[2019-11-26] MEDS ORDERED: CYANOCOBALAMIN 1000 MCG/ML VIAL IM SCH (09:00)
== END 2019-11-22 14:30 | disposition home or self-care (01) | DRG 638 ==
LOC: ER 09:59 → TELE3 13:37 → MEDSURG3 11-21 18:15
PROVIDERS: ADMIT Family Medicine; ATTEND Family Medicine
DX: E11.65 Type 2 diabetes mellitus with hyperglycemia (principal); E44.0 Moderate protein-calorie malnutrition; R07.89 Other chest pain; E66.9 Obesity, unspecified; D63.8 Anemia in other chronic diseases classified elsewhere; I10 Essential (primary) hypertension; Z90.49 Acquired absence of other specified parts of digestive tract; Z79.4 Long term (current) use of insulin; Z68.27 Body mass index [BMI] 27.0-27.9, adult; Z79.82 Long term (current) use of aspirin; E78.5 Hyperlipidemia, unspecified; J45.909 Unspecified asthma, uncomplicated
CPT/HCPCS: 36415; 70030-TC; 70450; 71046; 83525; 83690; 83735; 84100; 84443; 85025; 93005; A4663; A9150; G0378; J1815

== ENCOUNTER 2020-08-10 22:12 | Emergency (ER) | payer BC, OTHER ==
[~2020-08-10] VITALS: Ht 165.1 cm; Wt 71.7 kg
[~2020-08-10 22:12] MED LIST changes: -ATOR10TA PO; +CHOL500062 PO; +CYAN-10 IM; +CYCL5TAB PO; +INSU100V28 SQ; -INSU3INS6 SUBCUT; +Insulin Glargine,Hum SQ; -LISI10TA5 PO
--- NOTE | 2020-08-10 22:26 | NUR ---
Dr. Rollins at bedside for MSE.
[2020-08-10 22:50] LABS: BASOPHILS % (AUTO) 0.6 % (0.0-2.0); EOSINOPHILS # (AUTO) 0.2 K/uL (0.0-0.7); EOSINOPHILS % (AUTO) 3.4 % (0.0-7.0); HEMATOCRIT 42.5 % (31.2-41.9); HEMOGLOBIN 14.4 g/dL (10.9-14.3); LYMPHOCYTES # (AUTO) 3.2 K/uL (20.0-40.0); LYMPHOCYTES % (AUTO) 45.2 % (20.5-51.5); MEAN CORPUSCULAR HGB CONC 34 g/dL (32.3-35.6); MEAN CORPUSCULAR VOLUME 91.2 fL (75.5-95.3); MONOCYTES # (AUTO) 0.5 K/uL (2.0-10.0); MONOCYTES % (AUTO) 6.5 % (0.0-11.0); NEUTROPHILS # (AUTO) 3.1 K/uL (1.8-8.9); NEUTROPHILS % (AUTO) 44.3 % (38.5-71.5); PLATELET COUNT (AUTO) 226 K/uL (179-408); RED BLOOD CELL COUNT(AUTO) 4.66 MIL/uL (3.63-4.92)
[2020-08-10 22:51] LABS: CREATININE 0.9 mg/dL (0.6-1.3)
[2020-08-10 22:56] LABS: BILIRUBIN,DIRECT 0.1 mg/dL (0.0-0.2); BILIRUBIN,TOTAL 0.2 mg/dL (0.2-1.0); TOTAL PROTEIN, SERUM 7.4 g/dL (6.4-8.2)
--- NOTE | 2020-08-10 23:16 | NUR ---
Pt provided urine sample, sent to lab.
[2020-08-10 23:25] LABS: *BILIRUBIN,URIN NEGATIVE (NEGATIVE); *BLOOD, URINE NEGATIVE (NEGATIVE); *CLARITY,URINE SLIGHTLY CLOUDY (CLEAR); *COLOR,URINE LIGHT YELLOW (YELLOW); *KETONES,URINE NEGATIVE (NEGATIVE); *UROBILINOGEN,URINE 0.2 E.U./dl (NORMAL); LEUKOCYTE ESTERASE ,URINE NEGATIVE (NEGATIVE); NITRITE, URINE NEGATIVE (NEGATIVE); PH,URINE 7.5 (5.0-8.0); UGLUCOSE 3+ (NEGATIVE)
[2020-08-10 23:44] LABS: BACTERIA,URINE NONE SEEN /HPF (NONE SEEN); RBC,URINE 0-3 /HPF (0-3); URINE AMORPHOUS PHOSPHATES MODERATE /HPF; WBC,URINE 0-3 /HPF (0-3)
[2020-08-11] MEDS ORDERED: ACETAMINOPHEN 325 MG TABLET ONE (00:44)
[2020-08-11] MEDS ORDERED: ACETAMINOPHEN 325 MG TABLET PO ONE (00:45)
--- NOTE | 2020-08-11 00:50 | NUR ---
R shoulder sling applied to patient, tolerated well. Teaching provided. Verbalized understanding. Pt not in distress.
--- NOTE | 2020-08-11 01:58 | NUR ---
Patient cleared for discharge to home. Stressed follow up or return to ER for worsening s/s. Written and verbal after care instructions given. Patient verbalizes understanding of instructions. Work note also provided to patient and faxed to patient's employer per her request. Ambulated out of ER in steady gait and stable condition.
[2020-08-11 02:01] VITALS: BP 141/91
== END 2020-08-11 02:05 | disposition home or self-care (01) ==
LOC: ER 22:14
DX: S42.91XA Fracture of right shoulder girdle, part unspecified, initial encounter for closed fracture (principal); W18.30XA Fall on same level, unspecified, initial encounter; Y92.89 Other specified places as the place of occurrence of the external cause; R55 Syncope and collapse; R51.9 Headache, unspecified; E11.9 Type 2 diabetes mellitus without complications; I10 Essential (primary) hypertension; R10.9 Unspecified abdominal pain; Z90.49 Acquired absence of other specified parts of digestive tract; Z88.5 Allergy status to narcotic agent; Z91.041 Radiographic dye allergy status; Z79.4 Long term (current) use of insulin; J32.0 Chronic maxillary sinusitis; Z79.82 Long term (current) use of aspirin; R94.31 Abnormal electrocardiogram [ECG] [EKG]
CPT/HCPCS: 36415; 70030-TC; 70450; 71045; 73030; 85025; 93005; A4663

== ENCOUNTER 2021-02-02 07:54 | Emergency (ER) | payer BC, OTHER ==
[~2021-02-02] VITALS: Ht 165.1 cm; Wt 77.1 kg
--- NOTE | 2021-02-02 08:00 | NUR ---
Dr Leal at bedside for MSE.
[2021-02-02] MEDS ORDERED: AMOX-430 PO (08:08)
[2021-02-02] MEDS ORDERED: ERYT3.5O24 LEFTEYE (08:08)
--- NOTE | 2021-02-02 08:15 | NUR ---
Pt has been cleared for DC by DON. Written and verbal after care instructions given. Patient verbalizes understanding of instructions. Stressed follow up or return to ER for worsening s/s. Patient discharged to home in stable condition, ambulated out of ED steady gait.
[2021-02-02 08:17] VITALS: BP 150/75
== END 2021-02-02 08:17 | disposition home or self-care (01) ==
LOC: ER 07:56 → MERGE 07:56 → ER 08:17
DX: L03.213 Periorbital cellulitis (principal); R03.0 Elevated blood-pressure reading, without diagnosis of hypertension; Z88.5 Allergy status to narcotic agent; Z91.041 Radiographic dye allergy status
CPT/HCPCS: A4663

== ENCOUNTER 2021-10-16 00:01 | Emergency (ER) | payer BC, OTHER ==
[~2021-10-16] VITALS: Ht 165.1 cm; Wt 77.1 kg
[~2021-10-16 00:01] MED LIST changes: +AMOX-430 PO; +ERYT3.5O24 LEFTEYE
--- NOTE | 2021-10-16 00:41 | NUR ---
DR. RHODES AT BEDSIDE, MSE IN PROGRESS.
--- NOTE | 2021-10-16 00:50 | NUR ---
XRAY AT BEDSIDE.
--- NOTE | 2021-10-16 01:00 | NUR ---
LAB AT BEDSIDE.
[2021-10-16 01:07] LABS: HEMATOCRIT 43.6 % (31.2-41.9); MEAN CORPUSCULAR HEMOGLOBIN 30.6 uug (24.7-32.8); MEAN CORPUSCULAR VOLUME 89.9 fL (75.5-95.3); PLATELET COUNT (AUTO) 215 K/uL (179-408)
[2021-10-16 01:19] LABS: CREATININE 0.9 mg/dL (0.6-1.3)
--- NOTE | 2021-10-16 02:15 | NUR ---
Patient discharged to home in stable condition. Written and verbal after care instructions given. Patient verbalizes understanding of instructions. Stressed follow up or return to ER for worsening s/s. Steady gait. Denies any pain/discomfort humphrey discharge. No changes in LOC. No SOB or labored breathing. Afebrile.
[2021-10-16 02:16] VITALS: BP 144/72
== END 2021-10-16 02:23 | disposition home or self-care (01) ==
LOC: ER 00:07
DX: U07.1 COVID-19 (principal); E11.65 Type 2 diabetes mellitus with hyperglycemia; Z79.4 Long term (current) use of insulin; R03.0 Elevated blood-pressure reading, without diagnosis of hypertension; R94.31 Abnormal electrocardiogram [ECG] [EKG]; Z91.041 Radiographic dye allergy status
CPT/HCPCS: 36415; 70030-TC; 71045; 85025; 93005; A4663